=== PATIENT | male | born 1965 | race Caucasian/White ===

== ENCOUNTER 2018-06-20 00:58 | Emergency (ER) | payer OTHER ==
[2018-06-20 01:20] LABS: ABS Basophils 0.1 10^3/ul (0-0.2); ABS Eosinophils 0.2 10^3/ul (0-0.6); ABS Neutrophils 6.1 10^3/ul (1.5-7.7); ABS Nucleated RBC 0 10^3/ul; Eosinophil % 1.9 %; Hematocrit 43 % (36-46); Mean Corpuscular HGB Conc 35 g/dL (31-36); Mean Corpuscular Hemoglobin 33 pg (27-31); Mean Corpuscular Volume 95 fL (80-94); Mean Platelet Volume 7.5 fL (7.4-10.4); Nucleated Red Blood Cells % 0.1; Platelet Count 250 10^3/uL (150-450); Red Blood Count 4.53 10^6 /uL (4.18-5.48); Red Cell Distribution Width 13 % (10.5-15); White Blood Count 10.4 10^3/uL (3.5-10.8)
[2018-06-20 01:33] LABS: Rapid HIV 1 Nonreactive (Nonreactive)
[2018-06-20 01:35] LABS: Albumin 4.3 g/dL (3.2-5.2); Albumin/Globulin Ratio 1.3 (1-3); Calcium 9.4 mg/dL (8.6-10.3); EGFR African American 87.5 (>60); EGFR Non-African American 72.3 (>60); Globulin 3.2 g/dL (2-4); Potassium 3.7 mmol/L (3.5-5.0); Total Bilirubin 0.5 mg/dL (0.2-1.0); Total Protein 7.5 g/dL (6.4-8.9)
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
[2018-06-20 02:30] VITALS: BP 163/86
[2018-06-21 11:10] LABS: Hepatitis B Surface Antigen Nonreactive (Nonreactive)
[2018-06-21 11:12] LABS: Hepatitis B Surface AB Immune (Immune)
[2018-06-21 11:34] LABS: Hepatitis C Antibody Nonreactive (Nonreactive)
== END 2018-06-20 02:30 | disposition home or self-care (01) ==
LOC: ED 00:58
DX: S61.031A Puncture wound without foreign body of right thumb without damage to nail, initial encounter (principal); W26.8XXA Contact with other sharp object(s), not elsewhere classified, initial encounter; Y93.F9 Activity, other caregiving; Y92.239 Unspecified place in hospital as the place of occurrence of the external cause; Y99.0 Civilian activity done for income or pay
CPT/HCPCS: 36415; 80053; 85025; 86703; 86706; 86803; 87340; 99282

== ENCOUNTER 2018-10-26 22:40 | Emergency (ER) | payer BC, OTHER ==
[2018-10-26 22:48] VITALS: BP 173/101
[2018-10-26] MEDS ORDERED: Proparacaine 0.5% OPHTH.SOL* 15 ML BTL LEFT EYE ONE (23:20)
[2018-10-26] MEDS ORDERED: Fluorescein Sodium TOPICAL* 1 MG TEST STRIP OPHTHALMIC ONE (23:20)
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
[2018-10-26] MEDS ORDERED: Tetracaine 0.5% OPTH.SOL 4 ML* 1 DROP BTL ONE (23:27)
[2018-10-26] MEDS ORDERED: Tetracaine 0.5% OPTH.SOL 4 ML* 1 DROP BTL LEFT EYE ONE (23:30)
--- OUTSIDE RECORDS SUMMARY | 2018-10-26 23:33 | XMS REPORT | Continuity of Care Document ---
:1965 External Reference #:[id number] Author Name Evelyne Montez MD (transmitted by agent of provider Lemuel Bustillo) Address [address], [address] [place] [id number] Care Team Providers Name Role Phone Evelyne Montez M.D. - Family Medicine Care Team Information Painter Touch Up [phone] Problems Description No Information Available Social History Type Date Description Comments Sex Unknown Tobacco Use Start: Unknown Patient has never smoked Smoking Status Reviewed: 09/30/18 Patient has never smoked Allergies, Adverse Reactions, Alerts Active Allergies Reaction Severity Comments Date Perfume dermatitis Mild 09/30/2018 Medications Active Medications SIG Qnty Indications Ordering Date Provider Prozac 1 by mouth every 30caps Evelyne Montez MD 09/30/2018 20mg other day day Capsules Wellbutrin XL 1 by mouth every day 30tabs Evelyne Montez MD 09/30/2018 300mg Tablets ER 24HR Shingrix 0.5 milliliters 1units Z00.00 Evelyne Montez MD 09/30/2018 intramuscular now and 50mcg/0.5ML 1-2 months later Suspension Rec repeat Benadryl Allergy 2 tablets by mouth Unknown every night at 25mg Capsules bedtime as needed Melatonin ER 1-2 tab at bedtime Unknown 5mg for sleep Tablets ER Immunizations Description No Information Available Vital Signs Date Vital Result Comment 09/30/2018 11:26am Weight 299.00 lb Heart Rate 110 /min rode bike to appt BP Systolic 120 mmHg BP Diastolic 60 mmHg Body Temperature 98.6 F O2 % BldC Oximetry 96 % Results Description No Information Available Procedures Description No Information Available Medical Devices Description No Information Available Encounters Description No Information Available Assessments Date Code Description Provider 09/30/2018 Z00.00 Encounter for general adult medical examination Evelyne Montez MD without abnormal findings 09/30/2018 R00.0 Tachycardia, unspecified Evelyne Montez MD Plan of Treatment Future Appointment(s):10/02/2019 11:20 am - Evelyne Montez MD at [facility]09/30/2018 - Evelyne Montez MDZ00.00 Encounter for general adult medical examination without abnormal findingsNew Medication:Shingrix 50 mcg/ 0.5ML - 0.5 milliliters intramuscular now and 1-2 months later repeatComments: You are due for colon cancer screening. To that effect, I have ordered the appropriate tests or referralsYour cholesterol profile and other labs are due, so please go for fasting blood draw and I willsend you a letter with results within 2 weeks.Remember to wear sunscreen and see your dentist regularly.For optimum health, I recommend some form of regular exercise and integrating a lot of plant-based foods into your daily diet. We also discussed cutting back on alcohol consumption for your overall healthFollow up:Physical in 1 yearR00.0 Tachycardia, unspecifiedComments:Please keep track of your heart rate, let me know if you continue to experience tachycardia and I'llplace a referral to cardiology Functional Status Description No Information Available Mental Status Description No Information Available Referrals Description No Information Available
== END 2018-10-27 00:44 | disposition home or self-care (01) ==
LOC: ED 22:40
DX: S05.02XA Injury of conjunctiva and corneal abrasion without foreign body, left eye, initial encounter (principal); Y04.2XXA Assault by strike against or bumped into by another person, initial encounter; Y93.F9 Activity, other caregiving; Y92.89 Other specified places as the place of occurrence of the external cause; Y99.0 Civilian activity done for income or pay; Z79.899 Other long term (current) drug therapy; J32.3 Chronic sphenoidal sinusitis; J32.0 Chronic maxillary sinusitis
CPT/HCPCS: 70486; 99282; A9270-GY

== ENCOUNTER 2019-04-12 13:07 | Emergency (ER) | payer BC ==
[2019-04-12] MEDS ORDERED: Ketorolac INJ* 30 MG/ML 1 ML VIAL IV ONE (13:16)
[2019-04-12] MEDS ORDERED: NS 0.9% 1000 ML** 1,000 ML IV ONE (13:16)
[2019-04-12] MEDS ORDERED: Albuterol/Ipratropium NEB.SOL* Albuterol 2.5 MG/Ipratropium 0.5 MG 3 ML INH ONE (13:21)
--- NOTE | 2019-04-12 13:28 | ED ---
HPI Cardiac - HPI Summary HPI Summary: This pt is a 53 Y/O M presenting to [facility] with a CC of a productive cough that has been present since 04/09/2019. The pt states that he feels fatigued and has issues with sleeping due to the cough. He states pain from the cough is rated a 7/10. He also states SOB and worsening symptoms on exertion and lying on his chest while sleeping. He denies any N/V, headaches, fevers, chills, and LE edema. He has no pertinent PMHx. He has a FHx of asthma. He has no alleviating factors. UTD shots including pertussis. Sick contacts. - History of Current Complaint Chief Complaint: EDUpperRespComplaint Stated Complaint: COUGH PER PT Time Seen by Provider: 04/12/19 13:08 Hx Obtained From: Patient Onset/Duration: Started Days Ago - 3, Still Present Timing: Constant, Lasting Days - 3 Initial Severity: Moderate Current Severity: Moderate Pain Intensity: 7 Pain Scale Used: 0-10 Numeric Chest Pain Location: Diffuse - secondary to cough Chest Pain Radiates: No Character: Cough, Productive Aggravating Factor(s): Exertion, Position Alleviating Factor(s): Nothing Associated Signs and Symptoms: Positive: Chest Pain, Shortness of Breath, Productive Cough. Negative: Headaches, Fever, Chills, Nausea, Vomiting, Edema - Allergy/Home Medications Allergies/Adverse Reactions: Allergies Allergy/AdvReac Type Severity Reaction Status Date / Time No Known Allergies Allergy Verified 04/12/19 13:13 Home Medications: Home Medications BuPROPion XL* [Bupropion XL*] 300 mg PO DAILY 10/26/18 [History Confirmed ] FLUoxetine CAP* [PROzac CAP*] 10 mg PO EVERY OTHER DAY 10/26/18 [History Confirmed 04/12/19] Albuterol HFA INHALER* [Ventolin HFA Inhaler*] 2 puff INH Q4H PRN 30 Days #1 mdi 04/12/19 [Rx] Biotin/Calcium Carbonate [Biotin 800 Mcg Tablet] 800 mcg PO DAILY 04/12/19 [ History Confirmed 04/12/19] Hydrocodone/Chlorphen P-Stirex [Hydrocodone-Chlorphen ER Susp] 5 ml PO BID PRN 7 Days #1 bottle MDD 10 mL 04/12/19 [Rx] Melatonin (NF) 5 mg PO BEDTIME PRN 04/12/19 [History Confirmed 04/12/19] diPHENhydraMINE PO* [Benadryl PO 25 MG TAB*] 25 mg PO BEDTIME PRN 04/12/19 [ History Confirmed 04/12/19] methylPREDNISolone [Medrol Dosepak 4 MG*] 0 mg PO .SEE HUBER INSTRUCTION #1 packet 04/12/19 [Rx] PMH/Surg Hx/FS Hx/Imm Hx Previously Healthy: Yes Endocrine/Hematology History: Denies: Hx Diabetes Respiratory History: Denies: Hx Asthma, Hx Chronic Obstructive Pulmonary Disease (COPD), Hx Pneumonia History: Denies: Hx Dialysis Sensory History: Denies: Hx Eye Prosthesis, Hx Legally Blind, Hx Deafness Opthamlomology History: Denies: Hx Eye Prosthesis, Hx Legally Blind Neurological History: Denies: Hx Dementia Psychiatric History: Denies: Hx Autism - Cancer History Hx Chemotherapy: No Hx Radiation Therapy: No - Surgical History Surgical History: Yes Surgery Procedure, Year, and Place: Back surgery - Immunization History Immunizations Up to Date: Yes Infectious Disease History: No Infectious Disease History: Denies: Traveled Outside the [place] in Last 30 Days - Family History Known Family History: Positive: Cardiac Disease, Respiratory Disease - Asthma - Social History Occupation: Employed Full-time Lives: With Family Alcohol Use: Occasionally Hx Substance Use: No Substance Use Type: Reports: None Hx Tobacco Use: No Smoking Status (MU): Never Smoked Tobacco Review of Systems Negative: Fever, Chills Positive: Chest Pain Positive: Shortness Of Breath, Cough Negative: Vomiting, Nausea Negative: Edema Negative: Headache All Other Systems Reviewed And Are Negative: Yes Physical Exam - Summary Physical Exam Summary: Constitutional: Well-developed, Well-nourished, Alert. (-) Distressed Skin: Warm, Dry HENT: Normocephalic; Atraumatic Eyes: Conjunctiva normal Neck: Musculoskeletal ROM normal neck. (-) JVD, (-) Stridor, (-) Nuchal rigidity Cardio: Rhythm regular, rate normal, Heart sounds normal; Intact distal pulses; Radial pulses are 2+ and symmetric. (-) Murmur Pulmonary/Chest wall: Effort normal. (-) Respiratory distress, Wheezing in the L upper lobe, L lower lobe ronchi (-) Rales Abd: Soft, (-) tenderness, (-) Distension, (-) Guarding, (-) Rebound Musculoskeletal: (-) Edema Lymph: (-) Cervical adenopathy Neuro: Alert, Oriented x3 Psych: Mood and affect Normal Triage Information Reviewed: Yes Vital Signs On Initial Exam: Initial Vitals Temp Pulse Resp BP Pulse Ox 98.9 F 89 18 164/96 91 04/12/19 13:09 04/12/19 13:09 04/12/19 13:09 04/12/19 13:09 04/12/19 13:09 Vital Signs Reviewed: Yes Procedures - Sedation Patient Received Moderate/Deep Sedation with Procedure: No Diagnostics - Vital Signs Vital Signs Temp Pulse Resp BP Pulse Ox 04/12/19 13:09 98.9 F 89 18 164/96 91 - Laboratory Result Diagrams: 04/12/19 13:44 04/12/19 13:44 Lab Statement: Any lab studies that have been ordered have been reviewed, and results considered in the medical decision making process. - Radiology CXR Radiology Interpretation Completed By: Radiologist Summary of Radiographic Findings: NO ACUTE CARDIOPULMONARY PROCESS BY RADIOGRAPH. ED physician has reviewed this report. - EKG 1424 Cardiac Rate: Tachycardia - 105 BPM EKG Rhythm: Sinus Tachycardia ST Segment: Normal Ectopy: None Summary of EKG Findings: An EKG at 1424 reveals sinus tachycardia at a rate of 105 BPM, nml axis, nml intervals. No STEMI. No acute changes. Interpreted by Dr. Grier at 1431 04/12/2019. Re-Evaluation - Re-Evaluation First Eval Re-Evaluation Time: 14:45 Change: Improved Comment: Pt ambulated with an ambulatory stat of 93%. Disposition - Course Course Of Treatment: 53 y/o male p/w URI like symptoms. - PE midly ill appearing, persistent cough, NAYAN wheezing. CXR neg for PNA, afebrile. CBC w/o leukocytosis. EKG sinus tachycardia. - feels better w albuterol neb, ambulating in ED. - pertussis sent given healthcare exposure, treat with steroids, albuterol. - Diagnoses Provider Diagnoses: Cough, Viral syndrome Discharge ED - Sign-Out/Discharge Documenting (check all that apply): Patient Departure - discharge - Discharge Plan Condition: Stable Disposition: HOME Prescriptions: Albuterol HFA INHALER* [Ventolin HFA Inhaler*] 2 puff INH Q4H PRN 30 Days #1 mdi PRN Reason: Wheezing Hydrocodone/Chlorphen P-Stirex [Hydrocodone-Chlorphen ER Susp] 5 ml PO BID PRN 7 Days #1 bottle MDD 10 mL PRN Reason: Cough methylPREDNISolone [Medrol Dosepak 4 MG*] 0 mg PO .SEE HUBER INSTRUCTION #1 packet Patient Education Materials: Viral Syndrome (ED), Wheezing (ED) Referrals: Evelyne Montez MD [Primary Care Provider] - Additional Instructions: You were seen in the emergency department for cough, shortness breath and feeling unwell. Your chest x-ray did not show pneumonia. Your labs did not show any evidence of infection. Please use albuterol every 4 hours as needed for wheezing. Please follow up with your primary care doctor in next 2-3 days and return to emergency department for worsening cough, trouble breathing, chest pain, passing out, or concerning symptoms. It was a pleasure taking care of you today. - Billing Disposition and Condition Condition: STABLE Disposition: Home - Attestation Statements Document Initiated by Ronniibbrooklynn: Yes Documenting Scribe: William Blunt Provider For Whom James is Documenting (Include Credential): Divina Grier MD Scribe Attestation: I, William Blunt, scribed for Divina Grier MD on 04/12/19 at 1547. Scribe Documentation Reviewed: Yes Provider Attestation: The documentation as recorded by the William davila accurately reflects the service I personally performed and the decisions made by me, Divina Grier MD Status of Scribe Document: Viewed
[2019-04-12 14:15] LABS: ABS Basophils 0.1 10^3/ul (0-0.2); ABS Eosinophils 0.3 10^3/ul (0-0.6); ABS Lymphocytes 1.9 10^3/ul (1.0-4.8); ABS Monocytes 1.3 10^3/ul (0-0.8); ABS Neutrophils 4.9 10^3/ul (1.5-7.7); Eosinophil % 3.8 %; Hematocrit 43 % (42-52); Hemoglobin 15.2 g/dL (14.0-18.0); Lymphocyte % 22.4 %; Mean Corpuscular HGB Conc 35 g/dL (31-36); Mean Corpuscular Hemoglobin 34 pg (27-31); Mean Corpuscular Volume 95 fL (80-94); Mean Platelet Volume 7.6 fL (7.4-10.4); Nucleated Red Blood Cells % 0.2; Platelet Count 217 10^3/uL (150-450); Red Blood Count 4.54 10^6 /uL (4.18-5.48); Red Cell Distribution Width 13 % (10-15); White Blood Count 8.5 10^3/uL (3.5-10.8)
[2019-04-12 14:24] LABS: Albumin 3.9 g/dL (3.2-5.2); Albumin/Globulin Ratio 1.2 (1-3); BUN/Creatinine Ratio 18.1 (8-20); Calcium 8.7 mg/dL (8.6-10.3); EGFR African American 101.2 (>60); EGFR Non-African American 83.6 (>60); Globulin 3.3 g/dL (2-4); Potassium 3.9 mmol/L (3.5-5.0); Total Bilirubin 0.7 mg/dL (0.2-1.0); Total Protein 7.2 g/dL (6.4-8.9)
[2019-04-12 14:51] VITALS: BP 163/92
== END 2019-04-12 14:52 | disposition home or self-care (01) ==
LOC: ED 13:07
DX: R05 Cough (principal); B34.9 Viral infection, unspecified; Z79.899 Other long term (current) drug therapy
CPT/HCPCS: 36415; 71046; 80053; 83605; 85025; 86615; 93005; 96361; 96374; 99283; A9270-GY; J1885